=== PATIENT | male | born 1945 | race Caucasian/White ===

== ENCOUNTER → 2017-03-19 | Outpatient (CLI) | payer MEDICARE, OTHER | END | disposition disaster alternative care site (69) | LOC: GRAD 09:38 | DX: Z08 Encounter for follow-up examination after completed treatment for malignant neoplasm (principal); M47.893 Other spondylosis, cervicothoracic region; Z85.46 Personal history of malignant neoplasm of prostate ==

== ENCOUNTER → 2017-04-13 | Outpatient (CLI) | payer MEDICARE, OTHER | END | disposition disaster alternative care site (69) | LOC: GKIC 11:22 | DX: R97.20 Elevated prostate specific antigen [PSA] (principal); M89.9 Disorder of bone, unspecified; R93.7 Abnormal findings on diagnostic imaging of other parts of musculoskeletal system; Z85.46 Personal history of malignant neoplasm of prostate | CPT/HCPCS: A9552 ==

== ENCOUNTER → 2017-04-30 | Outpatient (CLI) | payer MEDICARE, OTHER | END | disposition disaster alternative care site (69) | LOC: GLAB 13:00 → GRAD 13:03 | PROVIDERS: Registered Nurse Medical-Surgical | DX: C61 Malignant neoplasm of prostate (principal); M47.896 Other spondylosis, lumbar region; M47.893 Other spondylosis, cervicothoracic region; M89.9 Disorder of bone, unspecified | CPT/HCPCS: A9577 ==